=== PATIENT | female | born 1955 | race Caucasian/White ===

== ENCOUNTER → 2016-12-21 | Outpatient (CLI) | payer MEDICAID ==
[~2016-12-21] MED LIST: ACETAMINOPHEN325 M2 PO; ACETAMINOPHEN500 M3 PO; ALPRAZOLAM0.25 MG PO; AMOXIL500 MG PO; AMOXIL875 MG PO; ARICEPT 5MG TAB5 MG PO; ASPIRIN 81MG TA81 MG PO; BACTRIM DS 8001 TAB PO; BENZONATATE100 MG PO; BROMFED DM COU118 ML PO; CARVEDILOL3.125 MG PO; CARVEDILOL6.25 MG PO; CEFTIN500 MG PO; CHEWABLE ASPIRI81 MG PO; CIPRO 500MG TA500 MG PO; CITALOPRAM20 MG PO; CLARITIN 10MG T10 MG PO; CLOTRIMAZOLE 1%15 GM TP; COREG 6.25MG6.25 MG PO; COREG25 MG PO; DOCUSATE SODIU100 MG PO; DUONEB 3 MG/3 ML3 ML IH; EFFEXOR XR150 MG PO; FERROUS SULFAT325 M1 OR; FERROUS SULFAT325 M2 PO; FLAGYL 500MG.500 MG PO; FLONASE 50 MCG16 GM; FUROSEMIDE 20MG20 MG PO; FUROSEMIDE40 MG PO; GABAPENTIN100 M1 PO; HUMALOG100 U/M1 SC; HYDRALAZINE HCL25 M1 PO; HYDROCODONE-APA1 TA2 PO; INSULIN GL100 UNITS/ SC; INSULIN RE100 UNITS/ SC; K-DUR 20MEQ TA20 MEQ PO; KEFLEX 500MG.500 MG PO; KETOROLAC0.03 ML/DR OP; KLOR-CON M2020 MEQ PO; LANTUS INS100 UNITS/ SC; LEVOFLOXACIN 5500 MG PO; LISINOPRIL 20MG20 MG PO; LISINOPRIL/HCTZ1 TA3 PO; LISINOPRIL2.5 MG PO; LISINOPRIL20 MG PO; LOPERAMIDE2 MG PO; LORTAB 5/500 501 TAB PO; MAGMTHWSH PO; MEDROL 4MG. DOSE4 MG PO; METOLAZONE 2.52.5 MG PO; MOTRIN 600MG.600 MG PO; MUCINEX D 600 M1 TER PO; MULTI VITAMINS1 TAB PO; MULTI-VITAMIN1 EACH PO; NOVOLOG MIX 70/10 ML; NOVOLOG MIX 70/10 ML SC; OMEPRAZOLE40 MG PO; PANTOPRAZOLE SO40 MG PO; PHENERGAN 25MG.25 M1 PO; PLAVIX75 MG PO; PREVACID 30MG C30 M1 PO; PRILOSEC20 M1 PO; PROMETHAZINE25 MG/ML IM; PROVENTIL0.09 MG/AC IH; Q-TUSSIN DM 10120 ML PO; ROBITUSSIN DM 105 ML PO; SIMVASTATIN40 MG PO; SULFAMETHOXAZOL1 TA6 PO; TRAMADOL 50MG T50 MG PO; VICODIN 5/500 T1 TAB PO; VITAMIN C500 M1 PO; VITAMIN C500 MG PO; ZETIA10 MG PO; ZOCOR40 MG PO; ZYVOX600 MG PO
--- NOTE | 2016-12-21 14:25 | RADIOLOGY REPORT PS360 ---
CT SINUS (MAX-FACIAL W/O CONT) COMPARISON: CT scan of brain noncontrast 05/21/2011 HISTORY: Sinus congestion TECHNIQUE: Multiple axial scans were obtained of the maxillofacial bones and paranasal sinuses. Sagittal coronal reformats were evaluated as well. FINDINGS: There is mild mucoperiosteal thickening of both maxillary sinuses. There is bowing nasal septum to the right. There is inflammatory fluid and mucoperiosteal thickening in the ethmoid sinuses and prominent mucoperiosteal thickening in the frontal sinuses and right half of the sphenoid sinus. IMPRESSION: Findings of pansinusitis most likely chronic
== END ==
LOC: RAD 13:00
DX: J01.90 Acute sinusitis, unspecified (principal)

== ENCOUNTER → 2017-02-19 | Outpatient (CLI) | payer MEDICAID ==
--- NOTE | 2017-02-19 19:48 | RADIOLOGY REPORT PS360 ---
PROCEDURE: 2-D M-mode and color Doppler study INDICATIONS FOR THE TEST: Chest pain COPD Heart Murmur Tobacco SmokingEX Palpitations Fatigue Syncope Edema HypertensionXDiabetes MellitusX Rheumatic Fever SOBXDOEXObesityXHyperlipidemiaX Family History HD Additional History CAD,CHF limited exam secondary to unable to position pt,pleural eff noted PATIENT INFORMATION HEIGHT: 60 WEIGHT:172 GENDER: Female B/P:140/74 2-D/M-MODE INTERPRETATION: 2-D MEASUREMENTS OBSERVED VALUES IN CMS Right Ventricular Dimension (RVDd) 2.6 Interventricular Septum (Thickness)(IVsd) .9 Left Ventricular Internal Dimensions(LVIDd) 5.0 Left Ventricular Posterior Wall (Thickness)(LVPWd) .9 Aortic Root 3.0 Aortic Cusp Separation 1.1 Left Atrial Dimensions (LAD) 4.0 2D 1. Technically difficult study because of the patient's factor and poor acoustic windows 2. Left atrium is moderately enlarged, left ventricle is normal size, there is mild concentric left ventricular hypertrophy present, visually estimated ejection fraction approximately 45%, endocardial surface of very poorly visualized to analyze segmental wall motion. 3. The right atrium and right ventricle are moderately enlarged, contractility of the right ventricle is normal. 4. The aortic valve is heavily thickened and calcified with severe restriction the leaflet mobility. 5. The mitral valve has mitral calcification which extends and both anterior and posterior mitral leaflet 6. The pulmonic valve is poorly visualized. 7. The tricuspid valve leaflets are minimally thickened. 8. No significant pericardial effusion noted. There is large left-sided pleural effusion present. DOPPLER INTERROGATION: 1. The maximum aortic out flow velocity recorded study is 2.6 m/s resulting in a mean gradient across valve of 15 mmHg, this represents mild aortic stenosis, however morphologically there is moderate to severe aortic stenosis present. There is no aortic insufficiency. 2. The mitral inflow velocity within normal range, there is no mitral stenosis there is mild mitral regurgitation present 3. There is mild tricuspid regurgitation noted, tricuspid regurgitant jet velocity insufficient for calculation of the right ventricular systolic pressure. CONCLUSION: 1. Technically difficult study because of the patient's factor and poor acoustic windows. 2. Biatrial enlargement, normal left ventricular size, mild concentric left ventricular hypertrophy, visually estimated ejection fraction is approximately 45%, endocardial surface of very poorly visualized. 3. Thickened and calcified aortic valve, Doppler is indicative of mild aortic stenosis, however morphologically there is likely a moderate to severe aortic stenosis. 4. Mild mitral and tricuspid regurgitation. 5. No significant pericardial effusion noted.
== END ==
LOC: RT 09:27
DX: I50.9 Heart failure, unspecified (principal)